=== PATIENT | female | born 1955 | race African-American/Black ===

== ENCOUNTER 2023-09-09 13:23 | Emergency (ER) | payer MEDICARE, OTHER, MEDICAID ==
[~2023-09-09] VITALS: Ht 165.1 cm; Wt 68.0 kg
[2023-09-09 13:27] VITALS: TEMP 98.8; O2SAT 100
[2023-09-09] MEDS ORDERED: ONDANSETRON HCL 4MG/2ML INJ IV ONE (13:45)
[2023-09-09] MEDS ORDERED: MECLIZINE 25MG TABLET PO ONE (13:45)
[2023-09-09] MEDS ORDERED: SODIUM CHLORIDE 0.9% 1,000 ML IV ONE (13:45)
[2023-09-09 14:32] LABS: BASOPHILS % 0.9 % (0.0-2.0); EOSINOPHILS % 1.2 % (0.0-5.0); HEMATOCRIT. 42.8 % (36.0-48.0); HEMOGLOBIN. 13.7 g/dL (12.0-16.0); MEAN CORPUSCULAR HEMOGLOBIN 31.2 pg (28.0-32.0); MEAN CORPUSCULAR HGB CONC 32.1 g/dL (31.0-37.0); MEAN CORPUSCULAR VOLUME 97.2 fL (81.0-99.0); MEAN PLATELET VOLUME 8.7 fl (7.4-10.4); MONOCYTES % 7.5 % (2.0-8.0); NEUTROPHILS % 49.4 % (40.0-76.0); PLATELET 245 x1000/uL (130-400); RED CELL DISTRIBUTION WIDTH 14.3 % (11.6-14.6); WHITE BLOOD COUNT 8.4 x1000/uL (4.5-11.0)
[2023-09-09 17:19] LABS: ALANINE AMINOTRANSFERASE 10 IU/L (10-49); ALBUMIN 4.3 g/dL (3.2-4.8); ASPARTATE AMINOTRANSFERASE 18 IU/L (<34); BILIRUBIN TOTAL 0.3 mg/dL (0.1-1.0); CALCIUM 9.2 mg/dL (8.7-10.4); CARBON DIOXIDE 21 mEq/L (21-32); CHLORIDE 108 mEq/L (98-107); CREATININE 0.8 mg/dL (0.6-1.0); GLUCOSE 130 mg/dL (70-105); POTASSIUM 4.6 mEq/L (3.5-5.1); PROTEIN TOTAL 7.3 g/dL (6.0-8.3); SODIUM 141 mEq/L (136-145); TROPONIN I HIGH SENSITIVITY 6 ng/L (3.0-34); UREA NITROGEN BLOOD 13 mg/dL (9-23)
[2023-09-09] MEDS ORDERED: IOHEXOL-350 100 ML BOTTLE ONE (20:10)
[2023-09-09] MEDS ORDERED: MECL-299 MT (20:11)
[2023-09-09] MEDS ORDERED: ONDA4TAB11 PO (20:12)
[2023-09-09 20:53] VITALS: BP 143/85; PULSE 62; RESP 16
== END 2023-09-09 20:56 | disposition home or self-care (01) ==
LOC: ER 13:23 → CANBEDREQ 09-11 04:14
DX: R42 Dizziness and giddiness (principal); Z98.890 Other specified postprocedural states; Z86.011 Personal history of benign neoplasm of the brain
CPT/HCPCS: 99285; 70496; 96374; 96361; 80053; 85025; 84484; 36415; 70498; 93005; 70450; Q9967; J8597; J2405; J7030